=== PATIENT | male | born 1970 | race Caucasian/White ===

== ENCOUNTER 2017-06-04 06:42 | Emergency (ER) | payer MEDICAID ==
[2017-06-04] MEDS: CEFTRIAXONE 1 GM/50 ML (PMX) 50 ML IVPB (08:40)
[2017-06-04] MEDS: HYDROCODONE/APAP (5/325) TAB PO (08:40)
[2017-06-04] MEDS: VANCOMYCIN 1 GM (PMX) 250 ML IVPB (09:09)
== END 2017-06-04 11:13 | disposition home or self-care (01) ==
LOC: FTE 06:42
DX: K13.0 Diseases of lips (principal); F17.210 Nicotine dependence, cigarettes, uncomplicated
CPT/HCPCS: 96374; 96375; 99284-25